=== PATIENT | male | born 1965 | race Caucasian/White ===

== ENCOUNTER → 2016-06-09 | Outpatient (CLI) | payer BC ==
[2016-06-09 18:12] LABS: ALBUMIN 4.5 GM/DL (3.2-5.2); ANION GAP 8 MEQ/L (8-16); BLOOD UREA NITROGEN 15 MG/DL (7-18); CARBON DIOXIDE LEVEL 30 MEQ/L (21-32); CHLORIDE LEVEL 103 MEQ/L (98-107); CREATININE FOR GFR 0.94 MG/DL (0.70-1.30); GLOMERULAR FILTRATION RATE > 60.0 (>60); GLUCOSE, FASTING 95 MG/DL (70-105); PHOSPHORUS LEVEL 3.4 MG/DL (2.5-4.9); POTASSIUM SERUM 4.1 MEQ/L (3.5-5.1); SODIUM LEVEL 141 MEQ/L (136-145)
--- NOTE | 2016-06-09 21:01 | REP ---
TWO VIEW CHEST: There is no evidence of acute infiltrate. No pleural effusion is seen. The heart is normal in size. The mediastinal silhouette is unremarkable. The visualized osseous structures are intact. There are mild degenerative changes of the spine. IMPRESSION: No acute pulmonary disease. Signed by Clemente Katz MD 06/10/2016 07:57 P
== END ==
LOC: M LAB 17:03
PROVIDERS: ATTEND Internal Medicine Cardiovascular Disease
DX: Z68.30 Body mass index [BMI] 30.0-30.9, adult (principal); I11.9 Hypertensive heart disease without heart failure

== ENCOUNTER → 2016-08-05 | Outpatient (CLI) | payer BC ==
[2016-08-05 19:29] LABS: ALBUMIN 4.5 GM/DL (3.2-5.2); ANION GAP 3 MEQ/L (8-16); BLOOD UREA NITROGEN 16 MG/DL (7-18); CALCIUM LEVEL 9.3 MG/DL (8.5-10.1); CARBON DIOXIDE LEVEL 31 MEQ/L (21-32); CHLORIDE LEVEL 106 MEQ/L (98-107); CREATININE FOR GFR 0.93 MG/DL (0.70-1.30); GLOMERULAR FILTRATION RATE > 60.0 (>60); GLUCOSE, FASTING 96 MG/DL (70-105); PHOSPHORUS LEVEL 3.4 MG/DL (2.5-4.9); SODIUM LEVEL 140 MEQ/L (136-145)
== END ==
LOC: M LAB 18:19
PROVIDERS: ATTEND Internal Medicine Cardiovascular Disease
DX: Z68.30 Body mass index [BMI] 30.0-30.9, adult (principal); I11.9 Hypertensive heart disease without heart failure

== ENCOUNTER → 2016-11-14 | Outpatient (CLI) | payer BC ==
[~2016-11-14] MED LIST: ISOVUE-370 76% 100ML VIAL (Q9967) As Ordered ONE
--- NOTE | 2016-11-14 09:18 | REP ---
CT of the chest with IV contrast for thoracic aorta. CT angiography: The ascending thoracic aorta measures 3.7 cm long axis by 3.2 cm short axis. There is a motion artifact surrounding the ascending thoracic aorta, particularly along its anterior wall. On the 3-D reformats there is the impression of a saccular aneurysm along the anterior wall of the ascending thoracic aorta. However, upon review of the source axial images and sagittal reformats, I suspect that this is artifact from motion along the anterior ascending thoracic aorta on the 3-D reformats. There is no evidence of dissection. The isthmus measures 3.0 centimeters in diameter. The proximal descending thoracic aorta measures 2.7 centimeters. This gradually tapers to 2.5 cm at the diaphragmatic hiatus. The cardiac size is mildly enlarged. The cardiothoracic ratio is 0.61. There is no mediastinal, hilar or axillary adenopathy. There are no infiltrates, effusions, masses or nodules. The visualized portions of the liver, gallbladder, pancreas, and adrenals are unremarkable except that the liver appears hypodense suggestive of hepato steatosis. There is a ring enhancing 1.9 cm lesion at the upper pole of the spleen, nonspecific, possibly a splenic hemangioma. MRI evaluation could be more specific. Signed by Clemente Hudson MD 11/14/2016 09:10 A
== END ==
LOC: M RAD 07:36
PROVIDERS: ATTEND Internal Medicine Cardiovascular Disease
DX: M54.6 Pain in thoracic spine (principal); I71.2 Thoracic aortic aneurysm, without rupture; I35.1 Nonrheumatic aortic (valve) insufficiency
CPT/HCPCS: 71275; Q9967

== ENCOUNTER → 2017-07-06 | Outpatient (CLI) | payer BC ==
[2017-07-06 15:28] LABS: ALBUMIN 4.6 GM/DL (3.2-5.2); ANION GAP 4 MEQ/L (8-16); BLOOD UREA NITROGEN 22 MG/DL (7-18); CALCIUM LEVEL 9.3 MG/DL (8.5-10.1); CARBON DIOXIDE LEVEL 31 MEQ/L (21-32); CHLORIDE LEVEL 103 MEQ/L (98-107); CREATININE FOR GFR 1.05 MG/DL (0.70-1.30); GLOMERULAR FILTRATION RATE > 60.0 (>56); GLUCOSE, FASTING 108 MG/DL (70-100); MAGNESIUM LEVEL 1.8 MG/DL (1.8-2.4); PHOSPHORUS LEVEL 3.4 MG/DL (2.5-4.9); POTASSIUM SERUM 4.2 MEQ/L (3.5-5.1); SODIUM LEVEL 138 MEQ/L (136-145)
== END ==
LOC: M LAB 14:58
DX: I51.7 Cardiomegaly (principal); I11.9 Hypertensive heart disease without heart failure
CPT/HCPCS: 83735

== ENCOUNTER → 2019-10-14 | Outpatient (CLI) | payer BC ==
[~2019-10-14] MED LIST changes: +CARV6.25 PO; +CHLO125TA PO; -ISOVUE-370 76% 100ML VIAL (Q9967) As Ordered ONE; +LISI-538 PO
== END ==
LOC: M LABSMTC 10:49
PROVIDERS: ATTEND Anesthesiology
DX: Z01.818 Encounter for other preprocedural examination (principal); Z11.59 Encounter for screening for other viral diseases
CPT/HCPCS: C9803; U0003

== ENCOUNTER 2019-10-17 06:56 | Day surgery (SDC) | payer BC ==
[~2019-10-17] VITALS: Ht 177.8 cm; Wt 94.8 kg
[2019-10-17] MEDS ORDERED: NS 1,000 ML IV ONE (07:00)
[2019-10-17] MEDS ORDERED: LIDOCAINE 2% 100MG/5ML SDV (FOR ANES.) As Ordered ONE (07:09)
[2019-10-17] MEDS ORDERED: propofoL 200 MG/20 ML VIAL As Ordered ONE (07:09)
--- NOTE | 2019-10-17 08:14 | ROOR ---
Patient Name: Zachery Spivey Procedure Date: 10/17/2019 7:35 AM Date of : 1965 Age: 54 Room: [facility] Gender: Male Note Status: Finalized Procedure: Colonoscopy Indications: Screening for colorectal malignant neoplasm Providers: Drew Hagen MD Referring MD: Arden Miller MD Requesting Provider: Medicines: Monitored Anesthesia Care Complications: No immediate complications. Procedure: Pre-Anesthesia Assessment: - Prior to the procedure, a History and Physical was performed, and patient medications and allergies were reviewed. The patient is competent. The risks and benefits of the procedure and the sedation options and risks were discussed with the patient. All questions were answered and informed consent was obtained. Patient identification and proposed procedure were verified by the physician, the nurse and the anesthesiologist in the procedure room. Mental Status Examination: alert and oriented. Airway Examination: normal oropharyngeal airway and neck mobility. Respiratory Examination: clear to auscultation. CV Examination: normal. Prophylactic Antibiotics: The patient does not require prophylactic antibiotics. Prior Anticoagulants: The patient has taken no previous anticoagulant or antiplatelet agents. ASA Grade Assessment: II - A patient with mild systemic disease. After reviewing the risks and benefits, the patient was deemed in satisfactory condition to undergo the procedure. The anesthesia plan was to use monitored anesthesia care (MAC). Immediately prior to administration of medications, the patient was re-assessed for adequacy to receive sedatives. The heart rate, respiratory rate, oxygen saturations, blood pressure, adequacy of pulmonary ventilation, and response to care were monitored throughout the procedure. The physical status of the patient was re-assessed after the procedure. The Colonoscope was introduced through the anus and advanced to the terminal ileum, with identification of the appendiceal orifice and IC valve. The colonoscopy was performed without difficulty. The patient tolerated the procedure well. The quality of the bowel preparation was good. The terminal ileum, ileocecal valve, appendiceal orifice, and rectum were photographed. Scope insertion time was 3 minutes. Scope withdrawal time was 9 minutes. The total duration of the procedure was 12 minutes. Findings: The perianal and digital rectal examinations were normal. The terminal ileum appeared normal. A 6 mm polyp was found in the transverse colon. The polyp was sessile. The polyp was removed with a cold snare. Resection and retrieval were complete. Verification of patient identification for the specimen was done by the physician and nurse using the patient's name, date and medical record number. Estimated blood loss was minimal. Multiple small and large-mouthed diverticula were found from sigmoid to descending colon. There was no evidence of diverticular bleeding. Non-bleeding external and internal hemorrhoids were found during retroflexion. The hemorrhoids were medium-sized. Impression: - The examined portion of the ileum was normal. - One 6 mm polyp in the transverse colon, removed with a cold snare. Resected and retrieved. - Moderate diverticulosis from sigmoid to descending colon. There was no evidence of diverticular bleeding. - Non-bleeding external and internal hemorrhoids. Recommendation: - Patient has a contact number available for emergencies. The signs and symptoms of potential delayed complications were discussed with the patient. Return to normal activities tomorrow. Written discharge instructions were provided to the patient. - High fiber diet. - Continue present medications. - Await pathology results. - Use fiber, for example Citrucel, Fibercon, Konsyl or Metamucil. - Repeat colonoscopy in 5-10 years for surveillance based on pathology results. - Telephone GI clinic for pathology results in 2 weeks. - Return to primary care physician. Drew Hagen MD Drew Hagen MD 10/17/2019 8:14:33 AM Electronically signed by Drew Hagen MD Number of Addenda: 0 Note Initiated On: 10/17/2019 7:35 AM Estimated Blood Loss: Estimated blood loss was minimal.
[2019-10-17 08:20] VITALS: BP 169/76
== END 2019-10-17 08:34 | disposition home or self-care (01) ==
LOC: M SDC 06:56
PROVIDERS: ATTEND Internal Medicine Gastroenterology
DX: Z12.11 Encounter for screening for malignant neoplasm of colon (principal); K63.5 Polyp of colon; K64.8 Other hemorrhoids; K57.30 Diverticulosis of large intestine without perforation or abscess without bleeding; I10 Essential (primary) hypertension; Z79.899 Other long term (current) drug therapy

== ENCOUNTER → 2019-10-23 | Outpatient (CLI) | payer BC ==
[2019-10-23 08:55] LABS: HEMOGLOBIN 15.2 g/dl (13.5-17.5); MEAN CORPUSCULAR HEMOGLOBIN 31.1 pg (27.0-33.0); MEAN CORPUSCULAR HGB CONC 34.5 g/dl (32.0-36.5); PLATELET COUNT, AUTOMATED 165 10^3/uL (150-450); RED BLOOD COUNT 4.89 10^6/uL (4.30-6.10); WHITE BLOOD COUNT 4.5 10^3/uL (4.0-10.0)
[2019-10-23 09:29] LABS: BLOOD UREA NITROGEN 15 MG/DL (7-18); CALCIUM LEVEL 8.8 MG/DL (8.5-10.1); CARBON DIOXIDE LEVEL 29 MEQ/L (21-32); CHLORIDE LEVEL 106 MEQ/L (98-107); CHOLESTEROL LEVEL 188 MG/DL (<200); CHOLESTEROL RISK RATIO 3.547 (<5); GLOMERULAR FILTRATION RATE > 60.0 (>56); GLUCOSE, FASTING 101 MG/DL (70-100); HDL CHOLESTEROL 53 MG/DL (>40); LDL CHOLESTEROL 107 MG/DL (<100); NON-HDL-C 135 MG/DL; POTASSIUM SERUM 4.1 MEQ/L (3.5-5.1); SODIUM LEVEL 142 MEQ/L (136-145); TRIGLYCERIDES LEVEL 140 MG/DL (<150)
== END ==
LOC: M LAB 08:25
PROVIDERS: ATTEND Physician Assistant
DX: I11.9 Hypertensive heart disease without heart failure (principal)

== ENCOUNTER 2019-11-27 13:09 | Day surgery (SDC) | payer BC ==
[~2019-11-27] VITALS: Ht 177.8 cm; Wt 98.0 kg
[2019-11-27] MEDS ORDERED: MIDAZOLAM INJ 2MG/2ML VIAL (J2250 PER 1MG) As Ordered ONE (13:28)
[2019-11-27] MEDS ORDERED: LIDOCAINE VISCOUS 2% SOLN 15ML UDC As Ordered ONE (13:31)
[2019-11-27] MEDS ORDERED: NS 1,000 ML IV ONE (14:00)
[2019-11-27] MEDS ORDERED: MIDAZOLAM INJ 2MG/2ML VIAL (J2250 PER 1MG) IV ONE ×2 (14:02→14:04)
[2019-11-27 14:45] VITALS: BP 149/65
--- NOTE | 2019-12-19 13:26 | T-ECHO ---
REFERRING PHYSICIAN: KIMBERLEE Rivas INDICATIONS: Nonrheumatic aortic valve regurgitation. PROCEDURE PERFORMED: Transesophageal echocardiogram. PREPROCEDURE DIAGNOSIS: Severe aortic regurgitation (nonrheumatic). POSTPROCEDURE DIAGNOSIS: Severe aortic regurgitation (nonrheumatic). PRINCIPAL FINDING: Severe aortic regurgitation (nonrheumatic). DESCRIPTION OF PROCEDURE: Rhythm was sinus. Patient received viscous Lidocaine to gargle and swallow. He received a total of Midazolam 4 mg IV for IV sedation. Patient tolerated the procedure well without any immediate complications. Esophageal intubation was accomplished without difficulty by Dr. Lugo using a Almendarez two-dimensional transesophageal echocardiogram probe. The left ventricle appeared normal in size and systolic function and was without regional wall abnormalities. The left ventricular ejection fraction 65% by visual estimate. Right ventricle was normal in size and systolic function. At least moderate left atrial dilatation by visual assessment. No mass or thrombi were seen within the atria or their appendages. Atrial septum was intact anatomically and by color flow Doppler. Pulmonary vein flow in the left upper pulmonary vein by pulse wave Doppler was normal. No pericardial effusion. The distal aortic arch and descending thoracic aorta appeared normal. The aortic valve was 3- cuspid aortic valve and displayed mild-moderate focal thickening and focal calcific deposits, especially involving the free margins. There was a site of coaptation at the center of the aortic valve. Severe aortic regurgitation was present, which was eccentric and was directed along the ventricular side of the anterior mitral leaflet. Overall, the aortic valve regurgitation was judged to be severe. No aortic stenosis. Mild dilatation of the aortic root at the level of the sinus of Valsalva (4.0 cm) and the proximal ascending aorta (4.0 cm). No aortic dissection involving the proximal aorta or the distal aortic arch or descending thoracic aorta. Mitral leaflets were structurally normal with very mild mitral regurgitation. Tricuspid and pulmonic valves appeared normal and without regurgitation. CONCLUSIONS: * Mild-moderate aortic valve sclerosis of a 3-cuspid aortic valve. Severe aortic regurgitation. No aortic stenosis. * Mild dilatation of the aortic root at both the level of thee sinus Valsalva (4.0 cm) and proximal ascending aorta (4.0 cm). * Normal left ventricle size and systolic function. LVEF 65% by visual estimate. At least moderate left atrial dilatation by visual assessment. MTDD
== END 2019-11-27 14:55 | disposition home or self-care (01) ==
LOC: M OPP 13:09
PROVIDERS: ATTEND Internal Medicine Cardiovascular Disease
DX: I35.1 Nonrheumatic aortic (valve) insufficiency (principal); I11.9 Hypertensive heart disease without heart failure
CPT/HCPCS: 93312; 93320; 93325; J2250

== ENCOUNTER → 2022-06-22 | Outpatient (CLI) | payer BC ==
[~2022-06-22] MED LIST changes: -LISI-538 PO; +LISI20TA33 PO
[2022-06-22 07:50] LABS: ALBUMIN 4.4 G/DL (3.2-5.2); ALKALINE PHOSPHATASE 44 U/L (46-116); ALT/SGPT 49 U/L (7.0-40); AST/SGOT 34 U/L (<34); BILIRUBIN,TOTAL 0.5 MG/DL (0.3-1.2); BLOOD UREA NITROGEN 23 MG/DL (9-23); CALCIUM LEVEL 10.1 MG/DL (8.5-10.1); CARBON DIOXIDE LEVEL 31 MMOL/L (20-31); CHLORIDE LEVEL 100 MMOL/L (98-107); CHOLESTEROL LEVEL 180 MG/DL (<200); CHOLESTEROL RISK RATIO 4.11 (<5); CREATININE FOR GFR 0.96 MG/DL (0.70-1.30); GLOMERULAR FILTRATION RATE > 60.0 (>56); GLUCOSE, FASTING 121 MG/DL (60-100); HDL CHOLESTEROL 43.7 MG/DL (>40); LDL CHOLESTEROL 101.3 MG/DL (<100); NON-HDL-C 136.3 MG/DL; POTASSIUM SERUM 4.4 MMOL/L (3.5-5.1); SODIUM LEVEL 136 MMOL/L (136-145); TOTAL PROTEIN 7.4 G/DL (5.7-8.2); TRIGLYCERIDES LEVEL 175 MG/DL (<150)
== END ==
LOC: M LAB 06:49
PROVIDERS: ATTEND Physician Assistant
DX: I11.9 Hypertensive heart disease without heart failure (principal)

== ENCOUNTER → 2023-12-04 | Outpatient (CLI) | payer BC | LOC: M PLAIMG 13:23 | PROVIDERS: ATTEND Physician Assistant | DX: Q23.1 Congenital insufficiency of aortic valve (principal); I77.810 Thoracic aortic ectasia ==

== ENCOUNTER 2024-08-20 12:27 | Day surgery (SDC) | payer BC ==
[~2024-08-20] VITALS: Ht 175.3 cm; Wt 97.9 kg
[~2024-08-20 12:27] MED LIST changes: +LOSA100T46 PO; +MELO15TA28 PO; +SPIR-10 PO
[2024-08-20 15:30] VITALS: BP 111/53; O2SAT 95
== END 2024-08-20 15:33 | disposition home or self-care (01) ==
LOC: M OPP 12:27
PROVIDERS: ATTEND Surgery
DX: Z12.11 Encounter for screening for malignant neoplasm of colon (principal); K64.1 Second degree hemorrhoids; K57.30 Diverticulosis of large intestine without perforation or abscess without bleeding; Z86.0100 Personal history of colon polyps, unspecified; Z90.49 Acquired absence of other specified parts of digestive tract; I10 Essential (primary) hypertension; Z79.899 Other long term (current) drug therapy

== ENCOUNTER → 2025-02-05 | Outpatient (CLI) | payer BC | LOC: M CARPUL 08:45 | PROVIDERS: ATTEND Physician Assistant | DX: Q23.1 Congenital insufficiency of aortic valve (principal); I08.1 Rheumatic disorders of both mitral and tricuspid valves ==